=== PATIENT | female | born 1970 | race American Indian/Alaskan Native ===

== ENCOUNTER 2016-12-15 08:32 | Outpatient (CLI) | payer BC ==
--- NOTE | 2016-12-20 11:39 | Magnetic Resonance Report ---
MRI PELVIS WITHOUTAND WITH CONTRAST: 12/15/16 08:32:00 CLINICAL: Pain and vaginal bleeding. COMPARISON :None. TECHNIQUE: Sagittal, coronal and axial T1 and T2 fat sat sequences plus sagittal, coronal and axial postcontrast T1 fat sequences on a 1.5 Tsering magnet. 15 cc of Multihance was injected intravenously for contrast portion of exam the consent was obtained prior to the administration of contrast. Postcontrast imaging was obtained at 60 seconds, 90 seconds and 150 seconds. FINDINGS: An enlarged fibroid uterus measures 21 cm in length by 12.7 cm transverse dimension by 11.9 cm AP dimension. Conglomerate subserosal fibroids in the uterine fundus measure 11.0 x 10.0 x 8.0 cm. A posterior subserosal fibroid at the level of the cervix measures 8.4 x 6.8 x 6.8 cm. All of the fibroids demonstrate enhancement with the above mentioned fibroids demonstrating more heterogeneous enhancement without complete fill-in. A 4.0 cm subserosal left body fibroid demonstrates more homogeneous enhancement. The endometrium is mildly thickened and measures 8.1 mm in AP thickness.The right ovary is normal with small follicles and measures 1.0 cm. It is located relatively anterior at the lower level of the uterus.The left ovary is displaced laterally and is normal with a 1.6 cm corpus albicans. No adnexal mass. No free fluid. IMPRESSION: 1. Uterine leiomyomata with a 21 cm uterus and dominant 11.0 and 8.4 cm fibroids. 2. All uterine fibroids demonstrate at least partial enhancement. 3. Mildly thickened endometrium. 4. Normal ovaries.
== END 2016-12-15 08:33 | disposition home or self-care (01) ==
LOC: SPVIMAG 08:32
PROVIDERS: ATTEND Radiology Vascular & Interventional Radiology
DX: D25.9 Leiomyoma of uterus, unspecified (principal)
CPT/HCPCS: 72197; A9577